=== PATIENT | female | born 1995 | race Two or more races ===

== ENCOUNTER 2024-10-12 12:35 | Observation (INO) | payer MEDICAID, OTHER ==
[~2024-10-12] VITALS: Ht 157.5 cm; Wt 58.0 kg
[2024-10-12 12:35] VITALS: BP 126/74; PULSE 120; RESP 16; TEMP 97.7; O2SAT 98
--- NOTE | 2024-10-12 12:42 | ED.PDOC ---
History of Present Illness HPI Comments This is a 28-year-old female who comes in with chief complaint of pelvic pain. The patient states that she is approximately 32 weeks and started with some lower abdominal pain. She states that now she is having pressure to the point where she can not ambulate. The patient denies any vaginal bleeding. 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 History Family History Family History: Reviewed,noncontributory to illness Social History Smoker: Non-Smoker Alcohol: Denies ETOH Use Drugs: Denies Drug Use Lives In: Home Constitutional: denies: chills, diaphoresis, fatigue, fever, malaise, sweats, weakness, others EENTM: denies: blurred vision, double vision, ear bleeding, ear discharge, ear drainage, ear pain, ear ringing, eye pain, eye redness, hearing loss, mouth pain, mouth swelling, nasal discharge, nose bleeding, nose congestion, nose pain, photophobia, tearing, throat pain, throat swelling, voice changes, others Respiratory: denies: cough, hemoptysis, orthopnea, SOB at rest, shortness of breath, SOB with excertion, stridor, wheezing, others Cardiovascular: denies: chest pain, dizzy spells, diaphoresis, Dyspnea on exertion, edema, irregular heart beat, left arm pain, lightheadedness, palpitations, PND, syncope, others Gastrointestinal: reports: abdominal pain; denies: abdomen distended, blood streaked bowels, constipated, diarrhea, dysphagia, difficulty swallowing, hematemesis, melena, nausea, poor appetite, poor fluid intake, rectal bleeding, rectal pain, vomiting, others Genitourinary: reports: pain, ; denies: abnormal vagina bleeding, burning, dyspareunia, dysuria, flank pain, frequency, hematuria, incontinence, v agina discharge, urgency, others Neurological: denies: dizziness, fainting, headache, left sided numbness, left sided weakness, numbness, paresthesia, pre-existing deficit, right sided numbness, right sided weakness, seizure, speech problems, tingling, tremors, weakness, others Musculoskeletal: denies: back pain, gout, joint pain, joint swelling, muscle pain, muscle stiffness, neck pain, others Integumetry: denies: bruises, change in color, change in hair/nails, dryness, laceration, lesions, lumps, rash, wounds, others Allergic/Immunocompromised: denies: Difficulty Healing, Frequent Infections, Hives, Itching, others Hematologic/Lymphatic: denies: anemia, blood clots, easy bleeding, easy bruising, swollen glands, others Endocrine: denies: excessive hunger, excessive sweating, excessive thirst, excessive urination, flushing, intolerance to cold, intolerance to heat, unexplained weight gain, unexplained weight loss, others Psychiatric: denies: anxiety, bipolar disorder, depression, hopeless, panic disorder, schizophrenia, sleepless, suicidal, others Physical Exam General Appearance: Mild Distress HEENT: Normal ENT Inspection, Pharynx Normal, TMs Normal Neck: Full Range of Motion, Non-Tender, Normal, Normal Inspection Respiratory: Chest Non-Tender, Lungs Clear, No Accessory Muscle Use, No Respiratory Distress, Normal Breath Sounds Cardiovascular: No Edema, No JVD, No Murmur, No Gallop, Normal Peripheral Pulses, Regular Rate/Rhythm Breast Exam: Deferred Gastrointestinal: Soft, Other (Gravid uterus) Genitalia: Deferred Pelvic: Deferred Rectal: Deferred Extremities: No calf tenderness, Normal capillary refill, Normal inspection, Normal range of motion, Non-tender, No pedal edema Musculoskeletal : Apperance: Normal Neurologic: Alert, 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 Was a procedure done?: No Differential Dx Considerations may include: Abdominal pain in X-Ray, Labs, Meds, VS The patient was being discharged to labor and delivery The patient will return to the emergency department's the condition worsens Time of 1ST Reevaluation: 12:40 Reevaluation 1ST: Improved Patient Education/Counseling: Diagnosis, Treatment, Prognosis, Need For Follow Up Family Education/Counseling: No Family Present Departure 1 Departure Time of Disposition: 12:41 Impression: Primary Impression: Abdominal pain during Qualified Codes: O26.899 - Other specified related conditions, unspecified trimester; R10.9 - Unspecified abdominal pain Disposition: 01 HOME / SELF CARE / HOMELESS Condition: Fair Discharged With: Self Critical Care Note Critical Care Time?: No Stability Stability form required: No Heart Score Heart Score: Heart Score Response (Comments) Value History N/A 0 EKG N/A 0 Age N/A 0 Risk Factors N/A 0 Troponin N/A 0 Total 0 ZACHARY ROSAS MD Oct 12, 2024 12:42
--- NOTE | 2024-10-12 15:05 | DVH ---
EXAM: US OBSTERICAL LIMITED CLINICAL HISTORY: Pelvic pain COMPARISON: None TECHNIQUE: Grayscale, color-flow Doppler, and spectral Doppler ultrasound of the pelvis is performed by transabdominal and transvaginal technique. Findings/Impression: Single live intrauterine in vertex presentation with heart rate of 136 bpm. Cervical os appears closed and measures 4.3 cm in length. Trace free fluid within the cervix. Placenta is posterior in location without evidence of previa or abruption. Amniotic fluid is within normal limits with CAREY 15.0 cm and MVP 4.5 cm. Nuchal cord.
--- NOTE | 2024-10-12 22:29 | DVHDS2 ---
Physician Discharge Progress N Final Diagnosis: round ligament pain previous C/S x1 Operations or Procedures: Operations or Procedures S: 28yo IUP@31.4wks presents to OB triage for pelvic pain, had 1 previous C/S. PNC with Dr. Rosales. O: VSS NST reactive TOCO: no UCs noted PO hydration A: 28yo IUP@31.4wks round ligament pain previous C/S x1 P: D/C home Recommended using support belt FKC/PTL precautions reviewed Dr. Rosales consulted, agrees with POC. Other Interventions Other Interventions [place] [address] Ph: [phone] DIAGNOSTIC IMAGING Diagnostic Imaging Report : [id number] Signed PATIENT: GRISEL SANZT: [id number] UNIT: [id number] : 1995 LOC: [facility] ROOM / BED: [facility] / AGE / SEX: 28 / F ADM STATUS: ADM IN SERVICE 1335 ORDERING PHYSICIAN: AYDEN MI CNM PROCEDURE(s): OBLTD - OBSTERICAL LIMITED REASON: Pelvic pain ORDER NUMBER(s): [id number], ACCESSION NUMBER(s): [id number] EXAM: US OBSTERICAL LIMITED CLINICAL HISTORY: Pelvic pain COMPARISON: None TECHNIQUE: Grayscale, color-flow Doppler, and spectral Doppler ultrasound of the pelvis is performed by transabdominal and transvaginal technique. Findings/Impression: Single live intrauterine in vertex presentation with heart rate of 136 bpm. Cervical os appears closed and measures 4.3 cm in length. Trace free fluid within the cervix. Placenta is posterior in location without evidence of previa or abruption. Amniotic fluid is within normal limits with CAREY 15.0 cm and MVP 4.5 cm. Nuchal cord. ATED BY: VALERY MENARD DO DICTATED DATE/TIME: 10/12/24 1508 SIGNED BY: VALERY MENARD DO SIGNED DATE/TIME: 10/12/24 150 CC: Condition on Discharge: Stable Disposition: Home Discharge Instructions: Diet: Regular Activity: No Restrictions, As Tolerated Medications: see med list Follow Up Care: Specialist: f/u with Dr. Rosales as scheduled Discharge Statement: "Patient was advised to return to the ER or call 911 if any headaches, dizziness, shortness of breath, chest pain, abdominal pain, bleeding, fevers, or worsening of medical condition. Patient was counseled about treatment plan, medications, possible side effects, patientverbalized understanding. All questions were answered to the best of my ability. This discharge took greater then 30 minutes in planning, reviewing documentation, counseling the patient, and discussing with other team members." Visit Coding OBGYN Date of Service: Oct 12, 2024 Billing Provider: AYDEN MI CNM MANAGER INFUSION Common Visit Codes: 85076-[facility] OBS CARE (HIGH) MANAGER INFUSION Procedure Codes: 85034-83- NON-STRESS TEST AYDEN MI CNM Oct 12, 2024 22:29
== END 2024-10-12 15:18 | disposition home or self-care (01) ==
LOC: ER 12:40 → LDRP 12:48
PROVIDERS: ADMIT Obstetrics & Gynecology; ATTEND Obstetrics & Gynecology
DX: O26.893 Other specified pregnancy related conditions, third trimester (principal); R10.2 Pelvic and perineal pain; O34.219 Maternal care for unspecified type scar from previous cesarean delivery; Z3A.31 31 weeks gestation of pregnancy; Z98.890 Other specified postprocedural states; Z79.899 Other long term (current) drug therapy
CPT/HCPCS: 76815; 81002; 94760; G0378